=== PATIENT | male | born 1955 | race Caucasian/White ===

== ENCOUNTER 2018-01-26 07:21 | Inpatient (IN) | payer OTHER ==
[~2018-01-26] VITALS: Ht 167.6 cm; Wt 90.3 kg
[~2018-01-26 07:21] MED LIST: ATOR10TA PO; FERR325T16 PO; LISINOPRIL PO; PANT40TA5 PO
[2018-01-26] MEDS ORDERED: FENTANYL PF 250 MCG/5ML ONE (07:44)
[2018-01-26] MEDS ORDERED: VANCOMYCIN PER PHARMACY MC ONE (07:44)
[2018-01-26] MEDS ORDERED: MIDAZOLAM 1 MG/ML, 2ML ONE (07:44)
[2018-01-26] MEDS ORDERED: BUPIVACAINE/PF 0.25% ONE ×3 (07:45)
[2018-01-26] MEDS ORDERED: VANCOMYCIN 1,600 MG in SODIUM CHLORIDE 0.9% 250 ML IV ONE (08:00)
[2018-01-26] MEDS ORDERED: LACTATED RINGERS 1,000 ML IV SCH (08:04)
[2018-01-26] MEDS ORDERED: TRANEXAMIC ACID 100 MG/ML, 10ML ONE ×4 (08:16→08:17)
[2018-01-26] MEDS ORDERED: ROPIvacaine/PF 0.2%, 20 ML ONE (08:16)
[2018-01-26] MEDS ORDERED: SODIUM CHLORIDE 0.9% 100 ML ONE (08:16)
[2018-01-26] MEDS ORDERED: KETOROLAC 60 MG/2 ML ONE (08:16)
[2018-01-26] MEDS ORDERED: EPINEPHRINE 1 MG/ML, 1ML ONE (08:17)
[2018-01-26] MEDS ORDERED: LIDOCAINE-MPF 1%, 2ML ONE (08:20)
[2018-01-26] MEDS ORDERED: ACETAMINOPHEN 500 MG TABLET PO ONE (08:30)
[2018-01-26] MEDS ORDERED: GABAPENTIN 300 MG CAPSULE PO ONE (08:30)
[2018-01-26] MEDS ORDERED: LIDOCAINE 1%, 2ML SQ PRN (08:30)
[2018-01-26] MEDS ORDERED: DIAZEPAM 5 MG TABLET PO PRN (09:00)
[2018-01-26] MEDS ORDERED: ACETAMINOPHEN 650 MG/20.3 ML UDC PO PRN (09:00)
[2018-01-26] MEDS ORDERED: ALUMINUM/MAG/SIMETHICONE 30 ML UDC PO PRN (09:00)
[2018-01-26] MEDS ORDERED: ONDANSETRON 4 MG TABLET PO PRN (09:00)
[2018-01-26] MEDS ORDERED: MAGNESIUM HYDROXIDE 8%, 30ML UDC PO PRN (09:00)
[2018-01-26] MEDS ORDERED: ONDANSETRON 2MG/ML, 2ML IV PRN (09:00)
[2018-01-26] MEDS ORDERED: HYDROmorphone 1 MG/ML, 1ML IV PRN (09:00)
[2018-01-26] MEDS ORDERED: DIPHENHYDRAMINE 50 MG CAPSULE PO PRN (09:00)
[2018-01-26] MEDS ORDERED: CEFAZOLIN 1,000 MG ONE (09:15)
[2018-01-26] MEDS ORDERED: DEXAMETHASONE 4 MG/ML, 1ML ONE (09:15)
[2018-01-26] MEDS ORDERED: hydrALAzine 20 MG/ML, 1ML ONE (09:15)
[2018-01-26] MEDS ORDERED: ONDANSETRON 2MG/ML, 2ML ONE (09:15)
[2018-01-26] MEDS ORDERED: FENTANYL PF 100 MCG/2ML IV PRN (10:00)
[2018-01-26] MEDS ORDERED: ACETAMINOPHEN 325 MG TABLET PO PRN (10:00)
[2018-01-26] MEDS ORDERED: HYDROcodone/APAP 7.5-325MG/15ML UDC PO PRN (10:00)
[2018-01-26] MEDS ORDERED: morphine SULFATE 10 MG/ML, 1ML IV PRN (10:00)
[2018-01-26] MEDS ORDERED: PROMETHAZINE 25 MG/ML, 1ML IV PRN (10:00)
[2018-01-26] MEDS ORDERED: ONDANSETRON 2MG/ML, 2ML IVPush PRN (10:00)
[2018-01-26] MEDS ORDERED: OXYcodone 5 MG/5 ML ORAL.SOL UDC PO PRN (10:00)
[2018-01-26] MEDS ORDERED: hydrALAzine 20 MG/ML, 1ML IV PRN (10:00)
[2018-01-26] MEDS ORDERED: FENTANYL PF 100 MCG/2ML ONE ×2 (10:16→11:31)
[2018-01-26] MEDS ORDERED: TRANEXAMIC ACID 1,000 MG in SODIUM CHLORIDE 0.9% 100 ML IVPB ONE (10:30)
[2018-01-26] MEDS ORDERED: OXYcodone 5 MG/5 ML ORAL.SOL UDC ONE (11:31)
[2018-01-26 12:55] VITALS: BP 147/73
[2018-01-26] MEDS: DOCUSATE 100 MG CAPSULE PO SCH ×2 (13:40→19:54)
[2018-01-26] MEDS: TAMSULOSIN 0.4 MG CAP.ER.24H PO SCH (13:40)
[2018-01-26] MEDS: MULTIVITAMINS/MINERALS TABLET PO SCH (13:41)
[2018-01-26 14:35] VITALS: BP 112/60
[2018-01-26] MEDS: FERROUS GLUCONATE 324 MG TABLET PO SCH ×2 (17:14→19:54)
[2018-01-26] MEDS: PANTOPROZOLE 40MG TABLET PO SCH (17:14)
[2018-01-26] MEDS: CEFAZOLIN PMX 1GM/50ML 50 ML IVPB SCH (17:15)
[2018-01-26] MEDS: D5%-0.45NACL+KCL 20MEQ 1,000 ML IV SCH (17:15)
[2018-01-26 18:35] VITALS: BP 101/61
[2018-01-26] MEDS ORDERED: ATORVASTATIN 10 MG TABLET PO SCH (21:00)
[2018-01-27 00:38] VITALS: BP 116/51
[2018-01-27] MEDS: CEFAZOLIN PMX 1GM/50ML 50 ML IVPB SCH (00:54)
[2018-01-27] MEDS: OXYcodone IR 5MG TABLET PO PRN ×3 (00:54→12:23)
[2018-01-27 03:02] VITALS: BP 103/61
[2018-01-27] MEDS: D5%-0.45NACL+KCL 20MEQ 1,000 ML IV SCH (04:14)
[2018-01-27] MEDS ORDERED: DEXAMETHASONE 4 MG/ML, 1ML IVPush SCH (06:00)
[2018-01-27] MEDS ORDERED: ASPIRIN 81 MG TABLET EC PO SCH (06:00)
[2018-01-27 07:25] VITALS: BP 103/67
[2018-01-27] MEDS: PANTOPROZOLE 40MG TABLET PO SCH (07:57)
[2018-01-27] MEDS ORDERED: LISINOPRIL 5 MG TABLET PO SCH (09:00)
[2018-01-27] MEDS ORDERED: KETOROLAC 30 MG/1 ML IV SCH (09:00)
[2018-01-27] MEDS ORDERED: ASPI-621 PO (09:06)
[2018-01-27] MEDS ORDERED: ONDA4TAB13 SL (09:12)
[2018-01-27] MEDS ORDERED: CELE200C PO (09:13)
[2018-01-27] MEDS ORDERED: DOCU100C33 PO (09:13)
[2018-01-27] MEDS ORDERED: TRAM50TA2 PO (09:14)
[2018-01-27] MEDS ORDERED: DIAZ5TAB PO (09:15)
[2018-01-27] MEDS: TAMSULOSIN 0.4 MG CAP.ER.24H PO SCH (10:22)
[2018-01-27] MEDS: FERROUS GLUCONATE 324 MG TABLET PO SCH (10:23)
[2018-01-27] MEDS: MULTIVITAMINS/MINERALS TABLET PO SCH (10:23)
[2018-01-27] MEDS: DOCUSATE 100 MG CAPSULE PO SCH (10:23)
[2018-01-27] MEDS ORDERED: OXYC5TAB2 PO (13:11)
== END 2018-01-27 13:25 | disposition home or self-care (01) | DRG 470 ==
LOC: OUT 07:21 → ORIP 08:53 → EDSTATUS 09:30 → 4NOR 12:53 → DCLOUNGE 01-27 13:01
PROVIDERS: ADMIT Orthopaedic Surgery; ATTEND Orthopaedic Surgery
PROC: 0SRC0J9 Replacement of Right Knee Joint with Synthetic Substitute, Cemented, Open Approach (ICD-10-PCS; principal; 2018-01-26 09:30)
DX: M17.11 Unilateral primary osteoarthritis, right knee (principal); I10 Essential (primary) hypertension; K21.9 Gastro-esophageal reflux disease without esophagitis; Z88.0 Allergy status to penicillin
CPT/HCPCS: 36415; 85014; 85018; 87081; 87806; 93005; J0171; J0690; J1100; J1885; J2250; J2405; J2795; J3010; J3370; J3490; C1776; G0475; J0360; J3480; J7050; J7120